=== PATIENT | male | born 1955 | race Caucasian/White ===

== ENCOUNTER 2017-08-30 15:24 | Inpatient (IN) | payer SELFPAY ==
--- NOTE | 2017-08-30 15:48 | CPEKG ---
Heart Rate: 73 RR Interval: 822 P-R Interval: 136 QRSD Interval: 86 QT Interval: 412 QTC Interval: 454 P Bath: 54 QRS Bath: 16 T Wave Bath: -24 EKG Severity - BORDERLINE ECG - EKG Impression: SINUS RHYTHM EKG Impression: BORDERLINE T ABNORMALITIES, DIFFUSE LEADS Electronically Signed By: Chung Cardona 30-Aug-2017 15:49:34
--- NOTE | 2017-08-30 15:49 | EDPHY ---
H & P Time Seen by Provider: 08/30/17 15:47 HPI/ROS: CHIEF COMPLAINT: Generalized weakness HISTORY OF PRESENT ILLNESS: Patient is a history of hypertension and diabetes with chronically elevated liver function tests. He said he felt fine on the 28 of August, but yesterday started feeling"run down"with"heavy legs"and"no energy." He said today he had some nausea and vomited once he went to urgent care and they told him to come to the ER for a potassium of 6.1. Patient tells me his fatigue is generalized and not local to any arm or leg. It is not better worse with anything. It is pretty severe and he wonders if he can get from"point to point"anymore. Not associated with headache or fever or other symptoms. REVIEW OF SYSTEMS: Eye: no change in vision ENT: no sore throat Cardiac: no chest pain or syncope Pulmonary: no cough or SOB Abdomen: No diarrhea or abdominal pain, denies red blood per rectum, has had darker stools. Musculoskeletal: no back pain Skin: no rash, was treated 3 weeks ago for right lower leg cellulitis which is improved. Neuro: no headache Constitutional: no fever : no urinary symptoms A comprehensive 10 point review of systems is otherwise negative aside from elements mentioned in the history of present illness. PAST MEDICAL HISTORY: Includes diabetes and hypertension, kidney stone and chronically elevated liver function tests, psoriasis Social history: Denies alcohol, here with his of 13 years, PCP is Dr. Antonio. General Appearance: Alert and conversant, cooperative. Eyes: No scleral icterus. ENT, Mouth: Normal mucous membranes. Respiratory: Normal respiratory effort, breath sounds equal, lungs are clear to auscultation. Cardiovascular: Regular rate and rhythm. Gastrointestinal: Abdomen is soft and non tender. Neurological: Alert, face symmetric, normal motor and sensory in extremities. Skin: Patient has diffuse rash of psoriasis including both hands in the middle of his back. Musculoskeletal: Has bilateral peripheral edema but no calf tenderness. Psychiatric: Not agitated. Emergency Department course/MDM: Plan to check CBC chemistry and liver function tests. Results discussed with the patient. He has melena and 40 mg IV Protonix ordered. He has hyperkalemia and 10 units IV insulin and 1 amp of D50 ordered, 1 amp of sodium bicarbonate. He does not have QRS abnormalities on EKG. Consultation with gastroenterology and hospitalist for admission. Continued monitoring in the ER. Smoking Status: Current every day smoker Constitutional: Initial Vital Signs Temperature (C) 36.4 C 08/30/17 15:32 Heart Rate 82 08/30/17 15:32 Respiratory Rate 16 08/30/17 15:32 Blood Pressure 91/63 L 08/30/17 15:32 O2 Sat (%) 100 08/30/17 15:32 O2 Delivery Mode Room Air Allergies/Adverse Reactions: cholera vaccine Allergy (Verified 08/30/17 15:32) codeine Allergy (Verified 08/30/17 15:32) Home Medications: Medication Instructions Recorded Aspirin 08/30/17 Metformin HCl 08/30/17 Metoprolol Tartrate 08/30/17 Medical Decision Making - Diagnostics EKG Interpretation: 12-lead EKG interpreted by me; official reading is in trace master. My interpretation is sinus rhythm with nonspecific T-wave flattening diffuse. Differential Diagnosis: Differential diagnosis considered for weakness including but not limited to electrolyte abnormality, depression, anxiety, CVA, spinal cord abnormality, and infectious causes. Consult/Admit Bed Type: [place] [id number], [place] [id number] Critical Care Time: Critical care time spent by me, Dr. Cardona, exclusively with the care of this patient was 40 minutes, exclusive of PA or RATING EXAMINER time and exclusive of separate procedures. The organ system at risk was gastroenterology and metabolic with hyperkalemia and upper GI bleed, and I ordered proton pump inhibitor, insulin and glucose, IV bicarbonate to stabilize the patient and prevent worsening of the patient's condition. - Data Points Laboratory Results: Laboratory Results 08/30/17 15:54 08/30/17 15:54 08/30/17 08/30/17 08/30/17 16:44 16:01 15:54 WBC RBC Hgb POC Hgb 9.5 gm/dL L gm/dL (13.7-17.5) Hct POC Hct 28 % L % (40-51) MCV MCH MCHC RDW Plt Count MPV Neut % (Auto) Lymph % (Auto) Sandoval % (Auto) Eos % (Auto) Baso % (Auto) Nucleat RBC Rel Count Absolute Neuts (auto) Absolute Lymphs (auto) Absolute Monos (auto) Absolute Eos (auto) Absolute Basos (auto) Absolute Nucleated RBC Immature Gran % Immature Gran # Platelet Estimate Polychromasia Hypochromasia Microcytic Cells Oval Macrocytes Smear Review By POC Sodium 138 mEq/L mEq/L (135-145) Sodium POC Potassium 5.5 mEq/L H mEq/L (3.3-5.0) Potassium POC Chloride 106 mEq/L mEq/L (97-110) Chloride Carbon Dioxide Anion Gap POC BUN 46 mg/dL H mg/dL (7-23) BUN Creatinine POC Creatinine 0.8 mg/dL mg/dL (0.7-1.3) Estimated GFR Glucose POC Glucose 163 mg/dL H mg/dL (70-100) Calcium Total Bilirubin Conjugated Bilirubin Unconjugated Bilirubin AST ALT Alkaline Phosphatase Total Protein Albumin Stool Occult Bld Scrn POSITIVE H (NEGATIVE) Ethyl Alcohol < 10 mg/dL mg/dL (0-10) 08/30/17 08/30/17 15:54 15:54 WBC 6.25 10^3/uL 10^3/uL (3.80-9.50) RBC 2.26 10^6/uL L 10^6/uL (4.40-6.38) Hgb 8.2 g/dL L g/dL (13.7-17.5) POC Hgb Hct 26.7 % L % (40.0-51.0) POC Hct MCV 118.1 fL H fL (81.5-99.8) MCH 36.3 pg H pg (27.9-34.1) MCHC 30.7 g/dL L g/dL (32.4-36.7) RDW 17.6 % H % (11.5-15.2) Plt Count 89 10^3/uL L 10^3/uL (150-400) MPV 12.4 fL H fL (8.7-11.7) Neut % (Auto) 72.3 % % (39.3-74.2) Lymph % (Auto) 21.6 % % (15.0-45.0) [place]oval % (Auto) 5.3 % % (4.5-13.0) Eos % (Auto) 0.0 % L % (0.6-7.6) Baso % (Auto) 0.3 % % (0.3-1.7) Nucleat RBC Rel Count 0.0 % % (0.0-0.2) Absolute Neuts (auto) 4.52 10^3/uL 10^3/uL (1.70-6.50) Absolute Lymphs (auto) 1.35 10^3/uL 10^3/uL (1.00-3.00) Absolute Monos (auto) 0.33 10^3/uL 10^3/uL (0.30-0.80) Absolute Eos (auto) 0.00 10^3/uL L 10^3/uL (0.03-0.40) Absolute Basos (auto) 0.02 10^3/uL 10^3/uL (0.02-0.10) Absolute Nucleated RBC 0.00 10^3/uL 10^3/uL (0-0.01) Immature Gran % 0.5 % % (0.0-1.1) Immature Gran # 0.03 10^3/uL 10^3/uL (0.00-0.10) Platelet Estimate DECREASED L (ADEQ) Polychromasia 1+ H Hypochromasia 1+ H Microcytic Cells 1+ H Oval Macrocytes 3+ H Smear Review By Pending POC Sodium Sodium 137 mEq/L mEq/L (135-145) POC Potassium Potassium 5.7 mEq/L H mEq/L (3.3-5.0) POC Chloride Chloride 107 mEq/L mEq/L (97-110) Carbon Dioxide 18 mEq/l L mEq/l (22-31) Anion Gap 12 mEq/L mEq/L (8-16) POC BUN BUN 49 mg/dL H mg/dL (7-23) Creatinine 0.8 mg/dL mg/dL (0.7-1.3) POC Creatinine Estimated GFR > 60 Glucose 161 mg/dL H mg/dL (70-100) POC Glucose Calcium 8.5 mg/dL mg/dL (8.5-10.4) Total Bilirubin 2.3 mg/dL H mg/dL (0.1-1.4) Conjugated Bilirubin 1.0 mg/dL H mg/dL (0.0-0.5) Unconjugated Bilirubin 1.3 mg/dL H mg/dL (0.0-1.1) AST 105 IU/L H IU/L (17-59) ALT 66 IU/L IU/L (21-72) Alkaline Phosphatase 80 IU/L IU/L (38-126) Total Protein 7.1 g/dL g/dL (6.3-8.2) Albumin 2.6 g/dL L g/dL (3.5-5.0) Stool Occult Bld Scrn Ethyl Alcohol Medications Given: Discontinued Medications Dextrose (Dextrose 50% Syringe) 25 gm IVP EDNOW ONE Stop: 08/30/17 16:29 Last Admin: 08/30/17 16:46 Dose: 25 gm Insulin Human Regular (Humulin R) 10 unit IVP EDNOW ONE Stop: 08/30/17 16:29 Last Admin: 08/30/17 16:45 Dose: 10 units Pantoprazole Sodium (Protonix) 40 mg IVP EDNOW ONE Stop: 08/30/17 17:01 Last Admin: 08/30/17 17:05 Dose: 40 mg Sodium Bicarbonate (Sodium Bicarbonate) 50 meq IVP EDNOW ONE Stop: 08/30/17 16:29 Last Admin: 08/30/17 16:45 Dose: 50 meq Point of Care Test Results: Chemistry 08/30/17 16:01 POC Sodium 138 mEq/L mEq/L (135-145) POC Potassium 5.5 mEq/L H mEq/L (3.3-5.0) POC Chloride 106 mEq/L mEq/L (97-110) POC BUN 46 mg/dL H mg/dL (7-23) POC Creatinine 0.8 mg/dL mg/dL (0.7-1.3) POC Glucose 163 mg/dL H mg/dL (70-100) ISTAT H&H 08/30/17 16:01 POC Hgb 9.5 gm/dL L gm/dL (13.7-17.5) POC Hct 28 % L % (40-51) Departure - Departure Disposition: [facility] Inpatient Acute Clinical Impression: Hyperkalemia, Upper GI bleeding Anemia Qualifiers: Anemia type: unspecified type Qualified Code(s): D64.9 - Anemia, unspecified Condition: Serious
[2017-08-30 16:20] LABS: PLATELET COUNT 89 10^3/uL (150-400)
[2017-08-30] MEDS ORDERED: SODIUM BICARBONATE 50 MEQ/50 ML SYR IVP ONE (16:28)
[2017-08-30] MEDS ORDERED: D50W 25 GM/50 ML SYR IVP ONE (16:28)
[2017-08-30] MEDS ORDERED: INSULIN REGULAR HUMAN 100 UNIT/ML UNIT IVP ONE (16:28)
[2017-08-30] MEDS ORDERED: PANTOPRAZOLE SODIUM 40 MG VIAL IVP ONE (17:00)
[2017-08-30] MEDS ORDERED: ONDANSETRON DISINTEGRATING 4 MG TAB PO PRN (17:08)
[2017-08-30] MEDS ORDERED: ONDANSETRON 4 MG/2 ML VIAL IVP PRN (17:08)
[2017-08-30] MEDS ORDERED: ACETAMINOPHEN 325 MG TAB PO PRN (17:08)
[2017-08-30] MEDS ORDERED: D50W 25 GM/50 ML VIAL IVP PRN (18:03)
--- NOTE | 2017-08-30 18:06 | GCON ---
[f rep st] CONSULTATION GI CONSULTATION DATE OF CONSULTATION: 08/30/2017 REQUESTING PHYSICIAN: Chung Cardona. REASON FOR CONSULTATION: Melena, anemia, and abnormal liver enzymes. HISTORY OF PRESENT ILLNESS: The patient is a 62-year-old gentleman who is followed by Dr. Antonio for diabetes mellitus and for chronic elevation of liver enzymes without etiology found. The patient presented to the emergency room today with a 48-hour history of malaise and anorexia. He has denied any blood in his stool or black tarry stools, any nausea, vomiting, abdominal pain, or hematemesis. He states that he has had cellulitis of his lower extremities for several weeks with edema, for which he said he was given a course of antibiotics. He denies any alcohol consumption. He does admit to cocaine use intranasal and IV in his 20s, but none since. He states he has had blood tests for hepatitis B and C in the past, which were negative. He has had no prior colonoscopy or upper endoscopies. The patient was noted to have melenic Hemoccult-positive stool by the emergency room doctor on admission to the emergency room with anemia with a hemoglobin of 8.2 as well as abnormal liver enzymes with a total bilirubin of 2.3, AST of 105, and ALT of 66. MEDICATIONS: Prior to admission included metformin, metoprolol, and daily aspirin. ALLERGIES: He states he is allergic to codeine and cholera vaccine. PAST MEDICAL HISTORY: Significant for hypertension, diabetes, chronic elevated liver enzymes, psoriasis, and a history of kidney stone. PAST SURGICAL HISTORY: Unremarkable. SOCIAL HISTORY: He adamantly denies alcohol consumption. His confirms this. He does not smoke tobacco. He lives with his in [place]. He is self -employed. REVIEW OF SYSTEMS: Other than complaints of fatigue and anorexia over the last 48 hours is negative for a comprehensive review of systems. PHYSICAL EXAMINATION: VITAL SIGNS: On my examination today, temperature 36.4 Celsius, pulse 78 and regular, blood pressure 107/66, respiratory rate 16, O2 saturation 98% on room air. GENERAL: Well-developed, well-nourished male, lying in the stretcher, in no apparent distress. INTEGUMENT: Ashen complexion. HEENT: Head: Atraumatic, normocephalic. Pupils equal, round, reactive to light. EOMs were intact. Sclerae nonicteric. Nares patent. Mucous membranes moist. Dentition good. NECK: Supple. Trachea midline. LYMPHATICS: No cervical or axillary adenopathy palpated. PULMONARY: Lungs are clear to percussion and auscultation. CARDIOVASCULAR: Regular rhythm and rate. Normal S1, S2 without murmur. Peripheral pulses were not palpated bilaterally. He did have pedal edema from the knees down to the ankles, which were brawny. GASTROINTESTINAL: Abdomen supple, distended without fluid wave, + bowel sounds, nontender. No HSM. EXTREMITIES: Without deformities. NEURO: Patient was alert and oriented x3. There were no focal neurologic deficits. RECTAL: Exam per ER doctor showed a black Hemoccult positive stool. LABS: Sodium 137, potassium 5.7, chloride 107, CO2 was 18, anion gap 12, BUN 49 , creatinine 0.8, glucose 161, calcium 8.5, total bilirubin 2.3, conjugated 1.0 , unconjugated 1.3, AST is 105, ALT is 66, ALP 80, albumin 2.6. White count 6.25, hemoglobin 8.2, hematocrit 26.7, MCV elevated at 118, platelets 89,000, RDW elevated at 17.6. IMPRESSION: 1. Gastrointestinal bleed with posthemorrhagic anemia, rule out peptic ulcer disease, rule out gastritis, less likely esophageal variceal bleed without significant bloody show. 2. Elevated liver enzymes with AST, ALT pattern consistent with alcoholic hepatitis, though the patient adamantly denies alcohol use. Other possibilities would be viral hepatitis, hemochromatosis, or Raphael's disease, less likely. 3. Hyperkalemia-mild. 4. Elevated blood urea nitrogen secondary to blood loss. 5. Thrombocytopenia, could be related to occult cirrhosis or bone marrow suppression from chronic alcohol use. RECOMMENDATIONS: 1. Hospitalist admit for further evaluation. 2. IV hydration. 3. Correct potassium. 4. Diuresis of fluid overload (peripheral edema legs). 5. Serial H and H. 6. Protonix 40 mg IV q.12 hours. 7. Esophagogastroduodenoscopy in the morning to rule out peptic ulcer or variceal bleed. 8. Viral hepatitis serology. 9. We will follow with you. /[id number]/MODL and [id number]/MODL MTDD
--- NOTE | 2017-08-30 18:09 | PDGENHP ---
History and Physical - Chief Complaint weakness - History of Present Illness Patient is a history of hypertension and diabetes with chronically elevated liver function tests. He said he felt fine on the 28 of August, but yesterday started feeling"run down"with"heavy legs"and"no energy." He said today he had some nausea and vomited once he went to urgent care and they told him to come to the ER for a potassium of 6.1. He reports leg swelling x several weeks. he reports no abd pain. no resp sx. Hx of HTN. no hx of CHF. no cp, no palpitations. Some nausea. Intermittent diarrhea. no focal deficits. PAST MEDICAL HISTORY: Includes diabetes and hypertension, kidney stone and chronically elevated liver function tests, psoriasis Social history: Denies alcohol, daily tobacco user History Information - Allergies/Home Medication List Allergies/Adverse Reactions: cholera vaccine Allergy (Verified 08/30/17 15:32) codeine Allergy (Verified 08/30/17 15:32) Home Medications: Aspirin 08/30/17 [Last Taken Unknown] Metformin HCl 08/30/17 [Last Taken Unknown] Metoprolol Tartrate 08/30/17 [Last Taken Unknown] I have personally reviewed and updated: medical history, social history - Social History Smoking Status: Current every day smoker Review of Systems Review of Systems: ROS: 10pt was reviewed & negative except for what was stated in HPI & below Physical Exam Physical Exam: Temp Pulse Resp BP Pulse Ox 36.4 C 78 16 107/66 98 08/30/17 15:32 08/30/17 16:02 08/30/17 16:02 08/30/17 16:02 08/30/17 16:02 Constitutional: no apparent distress Eyes: PERRL, EOMI Ears, Nose, Mouth, Throat: dry mucous membranes Cardiovascular: regular rate and rhythym, edema (2+) Respiratory: no respiratory distress, no rales or rhonchi Gastrointestinal: normoactive bowel sounds, soft, non-tender abdomen Skin: warm Neurologic: AAOx3 Psychiatric: interacting appropriately, not anxious, not encephalopathic Lymph, Heme, Immunologic: No petechiae Lab Data & Imaging Review 08/30/17 15:54 08/30/17 15:54 WBC 6.25 10^3/uL (3.80-9.50) 08/30/17 15:54 RBC 2.26 10^6/uL (4.40-6.38) L 08/30/17 15:54 Hgb 8.2 g/dL (13.7-17.5) L 08/30/17 15:54 POC Hgb 9.5 gm/dL (13.7-17.5) L 08/30/17 16:01 Hct 26.7 % (40.0-51.0) L 08/30/17 15:54 POC Hct 28 % (40-51) L 08/30/17 16:01 MCV 118.1 fL (81.5-99.8) H 08/30/17 15:54 MCH 36.3 pg (27.9-34.1) H 08/30/17 15:54 MCHC 30.7 g/dL (32.4-36.7) L 08/30/17 15:54 RDW 17.6 % (11.5-15.2) H 08/30/17 15:54 Plt Count 89 10^3/uL (150-400) L 08/30/17 15:54 MPV 12.4 fL (8.7-11.7) H 08/30/17 15:54 Neut % (Auto) 72.3 % (39.3-74.2) 08/30/17 15:54 Lymph % (Auto) 21.6 % (15.0-45.0) 08/30/17 15:54 [place] % (Auto) 5.3 % (4.5-13.0) 08/30/17 15:54 Eos % (Auto) 0.0 % (0.6-7.6) L 08/30/17 15:54 Baso % (Auto) 0.3 % (0.3-1.7) 08/30/17 15:54 Nucleat RBC Rel Count 0.0 % (0.0-0.2) 08/30/17 15:54 Absolute Neuts (auto) 4.52 10^3/uL (1.70-6.50) 08/30/17 15:54 Absolute Lymphs (auto) 1.35 10^3/uL (1.00-3.00) 08/30/17 15:54 Absolute Monos (auto) 0.33 10^3/uL (0.30-0.80) 08/30/17 15:54 Absolute Eos (auto) 0.00 10^3/uL (0.03-0.40) L 08/30/17 15:54 Absolute Basos (auto) 0.02 10^3/uL (0.02-0.10) 08/30/17 15:54 Absolute Nucleated RBC 0.00 10^3/uL (0-0.01) 08/30/17 15:54 Immature Gran % 0.5 % (0.0-1.1) 08/30/17 15:54 Immature Gran # 0.03 10^3/uL (0.00-0.10) 08/30/17 15:54 Platelet Estimate DECREASED (ADEQ) L 08/30/17 15:54 Polychromasia 1+ H 08/30/17 15:54 Hypochromasia 1+ H 08/30/17 15:54 Microcytic Cells 1+ H 08/30/17 15:54 Oval Macrocytes 3+ H 08/30/17 15:54 POC Sodium 138 mEq/L (135-145) 08/30/17 16:01 Sodium 137 mEq/L (135-145) 08/30/17 15:54 POC Potassium 5.5 mEq/L (3.3-5.0) H 08/30/17 16:01 Potassium 5.7 mEq/L (3.3-5.0) H 08/30/17 15:54 POC Chloride 106 mEq/L (97-110) 08/30/17 16:01 Chloride 107 mEq/L (97-110) 08/30/17 15:54 Carbon Dioxide 18 mEq/l (22-31) L 08/30/17 15:54 Anion Gap 12 mEq/L (8-16) 08/30/17 15:54 POC BUN 46 mg/dL (7-23) H 08/30/17 16:01 BUN 49 mg/dL (7-23) H 08/30/17 15:54 Creatinine 0.8 mg/dL (0.7-1.3) 08/30/17 15:54 POC Creatinine 0.8 mg/dL (0.7-1.3) 08/30/17 16:01 Estimated GFR > 60 08/30/17 15:54 Glucose 161 mg/dL (70-100) H 08/30/17 15:54 POC Glucose 163 mg/dL (70-100) H 08/30/17 16:01 Calcium 8.5 mg/dL (8.5-10.4) 08/30/17 15:54 Total Bilirubin 2.3 mg/dL (0.1-1.4) H 08/30/17 15:54 Conjugated Bilirubin 1.0 mg/dL (0.0-0.5) H 08/30/17 15:54 Unconjugated Bilirubin 1.3 mg/dL (0.0-1.1) H 08/30/17 15:54 AST 105 IU/L (17-59) H 08/30/17 15:54 ALT 66 IU/L (21-72) 08/30/17 15:54 Alkaline Phosphatase 80 IU/L (38-126) 08/30/17 15:54 Total Protein 7.1 g/dL (6.3-8.2) 08/30/17 15:54 Albumin 2.6 g/dL (3.5-5.0) L 08/30/17 15:54 Stool Occult Bld Scrn POSITIVE (NEGATIVE) H 08/30/17 16:44 Ethyl Alcohol < 10 mg/dL (0-10) 08/30/17 15:54 Assessment & Plan Assessment: #Gen weakness #Acute likely Upper GI bleed with Melena #Hypotension, multifactorial, bleed and dehydration -hx of htn and hx of Afib, not on chronic AC #Dehydration #Acute blood loss anemia vs acute on chronic anemia #Macrocytosis #thrombocytopenia #transaminitis, mild #Hyperkalemia #Metabolic Acidosis #Pedal Edema, sub acute. No hx of CHF. Etiology unclear #tobacco abuse Plan: -GI to see -Transfuse PRN, will recheck H/H this evening -Likely NPO but will defer diet to GI who will see this evening -IVF now -monitor BP closely -PCU -Hold Metoprolol, Aspirin -ISS. Hold Metformin -SCD's -Await INR which has been ordered -TTE -US doppler LE although low suspicion for clot -Repeat BMP tonight to determine if K is increasing. Check Mg. -Hep Panel -full code -total critical care time in a patient with acute GIB and hypotension is 75 mins. D/W the ER staff.
[2017-08-30] MEDS ORDERED: NS 1,000 ML IV SCH (18:15)
[2017-08-30 19:53] LABS: INR 1.56 (0.83-1.16); PROTIME(PATIENT) 18.8 SEC (12.0-15.0)
[2017-08-30] MEDS: INSULIN LISPRO 100 UNIT/ML SC SCH (21:46)
[2017-08-30] MEDS: PANTOPRAZOLE SODIUM 40 MG VIAL IVP SCH (21:53)
[2017-08-30 21:57] LABS: HEPATITIS A ANTIBODY IGM (BCH) NEGATIVE (NEGATIVE); HEPATITIS B CORE AB IGM NEGATIVE (NEGATIVE); HEPATITIS B SURFACE ANTIGEN NEGATIVE (NEGATIVE); HEPATITIS C ANTIBODY TOTAL REACTIVE (NEGATIVE)
[2017-08-30 23:35] LABS: PLATELET COUNT 62 10^3/uL (150-400)
[2017-08-31] MEDS: INSULIN LISPRO 100 UNIT/ML SC SCH ×3 (07:57→18:11)
[2017-08-31] MEDS: PANTOPRAZOLE SODIUM 40 MG VIAL IVP SCH ×2 (09:49→20:43)
--- NOTE | 2017-08-31 10:14 | PDMN ---
Medical Necessity Medical necessity: MCG: M180 GIB, Upper, A-2 days. 62 y/o w/ UGI bleed, hypotensive, dehydration, anemia (H/H 19.3/6.3), macrocytosis, thrombocytopenia (plt 62K), hyperkalemia K 5.7), metabolic acidosis, PRBC transfusion required, continuing IV fluids. NPO. GI consult plan for esophagogastroduodenoscopy to r/ o ulcer/variceal bleeds. Patient w/ hx diabetes, Afib. Anticipate >2MN for continued monitoring and treatment.
--- NOTE | 2017-08-31 11:49 | ECHO ---
[email or web address] [address] Main: [phone] Fax: [email or web address] Echocardiogram Name: PATRICK SMITH MR#: [id number] Study Date: 08/31/2017 Study Time: 08:08 AM Date of : 1955 Age: 62 year(s) Height: 182.9 cm (72 in.) Weight: 75.75 kg (167 lb.) BSA: 1.97 m2 Gender: Male Examination: Echo Indication: ?chf Image Quality: Adequate Contrast: Requested by: Parker Singh BP: 86 mmHg/50 mmHg Heart Rate: Rhythm: Indication: ?chf Procedure Staff Thread Machine Operator: Zenobia Mosquera [facility] Reading Physician: Jorge Ellison MD Requesting Provider: Conclusions: Normal size left ventricle. Normal global systolic LV function. EF is 65 %. No regional wall motion abnormality. Mild mitral valve regurgitation is present. Mild tricuspid regurgitation is present. Right ventricular systolic pressure measures 21mmHg. Measurements: Chambers Valvular Assessment AV/MV Valvular Assessment TV/PV Normal Normal Normal Name Value Range Name Value Range Name Value Range Ao Venita (2D): 3.0 cm (1.4 cm-2.6 AV Vmax: 1.40 m/s (1 m/s-1.7 TR Vmax: 2.00 mm/s ( - ) cm) m/s) TR PGmax: 16 mmHg ( - ) IVSd (2D): 1.0 cm (0.6 cm-1.1 AV maxP mmHg ( - ) syst. PAP: 21 mmHg ( - ) cm) AV meanP mmHg ( - ) PV Vmax: 1.14 m/s (0.6 m/s-0.9 LVDd (2D): 5.0 cm (4.2 cm-5.9 RACQUEL (VTI): 2.9 cm ( - ) m/s) cm) MV E Vmax: 0.54 m/s ( - ) PV PGmax: 5 mmHg ( - ) LVDs (2D): 3.4 cm (2.1 cm-4 MV A Vmax: 0.58 m/s ( - ) cm) MV E/A: 0.93 ( - ) LVPWd (2D): 1.0 cm (0.6 cm-1 cm) MV PHT: 0.087 s ( - ) LVOTd 2.4 cm 2.4 cm mm MVA (PHT): 2.5 s ( - ) LVEF (BP): 65 % (>=55 %) RVDd(2D): 2.8 cm (1.9 cm-3.8 cmmm) Continued Measurements: Chambers Valvular Assessment AV/MV Valvular Assessment TV/PV Patient: PATRICK SMITH Study Date: 08/31/2017 Page 1 of 2 08:08 AM Name Value Name Value Name Value LADs: 4.5 cm MV DecTime: 275 m/s CVP (est.): 5 mmHg LADs Lon.4 cm MV E' Septal: 0.10 m/s LA Area: 20.7 cm2 MV E/E' Septal: 5.50 LA Volume: 63 ml MV E/E' Lateral: 4.70 LA Volume Index: 32.0 ml/m2 RA Area: 17.5 cm2 Additional Vessels Name Value Ao Ascendin.3 cm Inferior Vena Cava: 1.5 cm Findings: Left Ventricle: Normal size left ventricle. No LV hypertrophy. Normal global systolic LV function. EF is 65 %. No regional wall motion abnormality. Unable to assess diastolic dysfunction. Right Ventricle: Normal size right ventricle. Normal RV function. Left Atrium: The left atrium is normal in size. Right Atrium: The right atrium is normal in size. Mitral Valve: The mitral valve is normal in appearance and function. Mild mitral valve regurgitation is present. No mitral stenosis is present. Aortic Valve: The aortic valve is tri-leaflet. There is no significant aortic valve regurgitation. No aortic valve stenosis is present. Tricuspid Valve: The tricuspid valve is normal in appearance and function. Mild tricuspid regurgitation is present. The pulmonary artery pressure is normal. Right ventricular systolic pressure measures 21mmHg. Pulmonic Valve: The pulmonic valve is normal in appearance and function. There is no pulmonic regurgitation seen. Aorta: The aorta is normal. Normal size aortic root measuring 3.0 cm. Normal size ascending aorta measuring 2.3 cm. IVC: The IVC is normal sized. Pericardium: No pericardial effusion. No pleural effusion. (No Signature Object) Patient: PATRICK SMITH Study Date: 08/31/2017 Page 2 of 2 08:08 AM [id number]
[2017-08-31] MEDS ORDERED: fentaNYL 100 MCG/2 ML INJ IVP PRN (12:20)
[2017-08-31] MEDS ORDERED: NALOXONE HCL 0.4 MG/ML INJ IVP PRN (12:20)
[2017-08-31] MEDS ORDERED: ONDANSETRON 4 MG/2 ML VIAL IVP PRN (12:20)
[2017-08-31] MEDS ORDERED: LR 500 ML IV PRN (12:20)
[2017-08-31] MEDS ORDERED: PROMETHAZINE HCL 25 MG/ML INJ IVP PRN (12:20)
--- NOTE | 2017-08-31 12:20 | PDANEPAE ---
ANE Past Medical History - Pulmonary History Hx Oxygen in Use at Home: No Hx Sleep Apnea: No Sleep Apnea Screening Result - Last Documented: Positive - Endocrine History Hx Diabetes: Yes - Chronic Pain History Chronic Pain: No ANE Review of Systems Review of Systems: ANE Patient History - Allergies Allergies/Adverse Reactions: cholera vaccine Allergy (Verified 08/30/17 19:03) Arm swelled up after injection codeine Allergy (Verified 08/30/17 19:03) Severe Nausea/Vomiting - Home Medications Home medications: home medication list seen and reviewed Home Medications: Aspirin [Aspirin 81mg (*)] 81 mg PO BID 08/30/17 [Last Taken Unknown] Metoprolol Tartrate [Lopressor 50 mg (*)] 50 mg PO BID 08/30/17 [Last Taken Unknown] metFORMIN HCL [Glucophage 500 mg (*)] 500 mg PO BIDMEAL 08/30/17 [Last Taken Unknown] - NPO status NPO Status: no food or drink >8 hours NPO Since - Liquids (Date): 08/31/17 NPO Since - Liquids (Time): 00:00 NPO Since - Solids (Date): 08/31/17 NPO Since - Solids (Time): 00:00 - Anes Hx Anes Hx: no prior problems - Smoking Hx Smoking Status: Current every day smoker ANE Labs/Vital Signs - Labs Result Diagrams: 08/30/17 23:00 08/30/17 23:00 - Vital Signs Blood Pressure: 86/50 Heart Rate: 82 Respiratory Rate: 15 O2 Sat (%): 94 Height: 182.88 cm Weight: 74.049 kg ANE Physical Exam - Airway Neck exam: FROM Mallampati Score: Class 2 Mouth exam: normal dental/mouth exam - Pulmonary Pulmonary: no respiratory distress, no rales or rhonchi, clear to auscultation - Cardiovascular Cardiovascular: regular rate and rhythym - ASA Status ASA Status: III ANE Anesthesia Plan Anesthesia Plan: GA with mask
[2017-08-31] MEDS ORDERED: PROPOFOL 200 MG/20 ML VIAL ONE (12:29)
--- NOTE | 2017-08-31 12:55 | GIREPORT ---
[facility] - Endoscopy Department Patient Name: Miah Oneill Procedure Date: 08/31/2017 12:10 PM Patient Type: Inpatient Attending MD/ ER Physician: Calvin Storey MD Procedure: Upper GI endoscopy Indications: Melena Providers: Calvin Storey MD Medicines: Propofol per Anesthesia Complications: No immediate complications. Description of Procedure: After obtaining informed consent, the endoscope was passed under direct vision. Throughout the procedure, the patient's blood pressure, pulse, and oxygen saturations were monitored continuously. The Endoscope was intro duced through the mouth, and advanced to the second part of duodenum. The [facility] GI endoscopy was accomplished without difficulty. The patient tolerated th e procedure well. Findings: Two columns of non-bleeding grade II varices were found in the middle t hird of the esophagus and in the lower third of the esophagus,. They were 7 mm in largest diameter. Stigmata of recent bleeding were evident and white cl ot were present. Two bands were successfully placed with incomplete eradic ation of varices. There was no bleeding during, and at the end, of the proced ure. Diffuse moderate inflammation characterized by erythema and granularity was found in the entire examined stomach. The examined duodenum was normal. Estimated Blood Loss: Estimated blood loss: none. Post Op Diagnosis: - Recently bleeding grade II esophageal varices. Incompletely eradicate d. Banded. - Non-erosive gastritis. Likely gastropathy of portal HTN. - Normal examined duodenum. - No specimens collected. Recommendation: - Return patient to ICU for ongoing care. - Clear liquid diet today. - Octreotide gtt x 48 hours. - Repeat upper endoscopy in 3 days for retreatment. - The findings and recommendations were discussed with the referring physician. Attending Participation: I personally performed the entire procedure. Calvin Storey MD Calvin Storey MD 08/31/2017 12:54:40 PM This report has been signed electronicallyCalvin Storey MD Number of Addenda: 0 Note Initiated On: 08/31/2017 12:10 PM [email or web address]
--- NOTE | 2017-08-31 12:59 | POSTANESTH ---
Post Anesthetic Evaluation Cardiovascular Status: Normal, Stable, Similar to Pre-Op Cond Respiratory Status: Normal, Stable, Similar to Pre-op Cond. Level of Consciousness/Mental Status: Moderately Sleepy Pain Control: Adequate, Prn Tx Ordered Nausea/Vomiting Control: Adequate, Prn Tx Ordered Complications Possibly Related to Anesthesia: None Noted
--- NOTE | 2017-08-31 13:29 | SOAPPROG ---
SOAP Progress Note Assessment/Plan: Assessment: 1. Esophageal variceal bleed; S/P Banding x 2 today. 2. Post Hemorrhagic anemia. 3. Hepatitis C with cirrhosis, new diagnosis. Plan: 1. Clear po. 2. IV octreotide gtt x 48 hours. 3. One unit prbc today. 4. Continue IV PPI. 5. Repeat EGD with F/U banding in 3-5 days. Calvin Storey MD 08/31/17 13:25 Objective: Vital Signs Temp Pulse Resp BP Pulse Ox 36.4 C 66 22 H 133/57 H 96 08/31/17 13:16 08/31/17 13:00 08/31/17 13:16 08/31/17 13:16 08/31/17 13:16 Laboratory Results 08/30/17 23:00 08/30/17 23:00 08/30/17 08/31/17 09/01/17 05:59 05:59 05:59 Intake Total 1250 Output Total 325 Balance 1250 -325 PT 18.8 SEC (12.0-15.0) H 08/30/17 15:54 INR 1.56 (0.83-1.16) H 08/30/17 15:54 ICD10 Worksheet Patient Problems: Problems Problem Status Onset Anemia Acute Hyperkalemia Acute Upper GI bleeding Acute
[2017-08-31 14:21] LABS: PLATELET COUNT 58 10^3/uL (150-400)
[2017-08-31] MEDS: OCTREOTIDE ACETATE 500 MCG in NS 50 ML IV SCH ×2 (15:16→20:43)
--- NOTE | 2017-08-31 15:58 | ASMTCMCOM ---
CM Note CM Note Notes: 08/31/2017 Case Management Note Reviewed chart, discussed pt during rounds this morning. Pt admitted for hyperkalemia, anemia, GIB. Pt had EGD today and US of liver. Pt is and self employed. Pt was evaluated by [employer] and found to be overincome for Medicaid. Pt is self pay at this time which will limit discharge supports from case management. PT eval is recommending home. Case Management d/c poc: anticipating independent with follow up as directed. Case Management available if needs change. Date Signed: 08/31/2017 03:57 PM Electronically Signed By:Leonor Mack RN
--- NOTE | 2017-08-31 16:14 | HOSPPROG ---
Hospitalist Progress Note Assessment/Plan: * New diagnosis cirrhosis due to Hep C -check abd US * GIB due to Esophageal varices -s/p banding x 2 -IV PPI, clear liquids -IV octreotide x 48 hours -repeat EGD 3-5 days for f/u banding * ABL anemia -s/p transfusion * Opiates on tox screen, but not on med list -needs further clarification with patient Subjective: No new complaints. Objective: Vital Signs Temp Pulse Resp BP Pulse Ox 36.7 C 67 14 106/59 L 94 08/31/17 15:52 08/31/17 15:52 08/31/17 15:52 08/31/17 15:52 08/31/17 15:52 Laboratory Results 08/31/17 14:05 08/31/17 14:05 08/30/17 08/31/17 09/01/17 05:59 05:59 05:59 Intake Total 1250 30 Output Total 325 Balance 1250 -295 PT 18.8 SEC (12.0-15.0) H 08/30/17 15:54 INR 1.56 (0.83-1.16) H 08/30/17 15:54 Old chart reviewed regarding previous lab values, HEP C never checked before - Physical Exam Constitutional: no apparent distress, appears nourished, not in pain Cardiovascular: regular rate and rhythym, edema (2+) Respiratory: no respiratory distress, no rales or rhonchi, clear to auscultation Gastrointestinal: normoactive bowel sounds, soft, non-tender abdomen, no palpable masses Skin: no rashes or abrasions, no fluctuance, no induration Neurologic: AAOx3, sensation intact bilaterally Psychiatric: interacting appropriately, not anxious, not encephalopathic, thought process linear ICD10 Worksheet Patient Problems: Problems Problem Status Onset Anemia Acute Hyperkalemia Acute Upper GI bleeding Acute
[2017-09-01 06:01] LABS: PLATELET COUNT 58 10^3/uL (150-400)
[2017-09-01] MEDS: INSULIN LISPRO 100 UNIT/ML SC SCH ×3 (07:48→17:37)
[2017-09-01] MEDS: OCTREOTIDE ACETATE 500 MCG in NS 50 ML IV SCH ×2 (07:50→18:39)
--- NOTE | 2017-09-01 07:57 | SOAPPROG ---
SOAP Progress Note Assessment/Plan: Assessment/Plan: 1. Portal HTN - HCV - complicated by varices - w/u otherwise underway - check US with Doppler - check remaining serologic w/u of liver disease - DORIS, AMA, ASMA, Ferr, Fe, TIBC, AFP, A1AT, ceruloplasmin 2. Varices - s/p EGD with bandingx2 on 08/31 - would defer repeat banding for 3-4 weeks (risk of dislodging recent bands vs benefit of placing new bands) unless bleeding recurs - continue octreotide gtt for now - ok to advance diet 3. HCV - will consider HCV treatment as outpt - newer meds are well tolerated and can improve outcomes even in setting of advanced cirrhosis - check genotype and viral load (to confirm HCV status) 09/01/17 08:17 Subjective: CC: liver disease S: feels hungry no BMs no fever no nausea no chest pain wants to go home Objective: Vital Signs Temp Pulse Resp BP Pulse Ox 36.8 C 77 16 94/52 L 98 09/01/17 07:16 09/01/17 07:16 09/01/17 07:16 09/01/17 07:16 09/01/17 07:16 Laboratory Results 09/01/17 04:46 09/01/17 04:46 08/31/17 09/01/17 09/02/17 05:59 05:59 05:59 Intake Total 1250 1191.5 Output Total 625 Balance 1250 566.5 PT 18.8 SEC (12.0-15.0) H 08/30/17 15:54 INR 1.56 (0.83-1.16) H 08/30/17 15:54 Laboratory Tests 08/30/17 08/30/17 09/01/17 15:54 15:54 04:46 WBC 2.95 L Hgb 8.9 L Hct 26.4 L MCV 100.8 H INR 1.56 H Total Bilirubin Conjugated Bilirubin Unconjugated Bilirubin AST ALT Hepatitis C Antibody REACTIVE H 09/01/17 04:46 WBC Hgb Hct MCV INR Total Bilirubin 6.7 H Conjugated Bilirubin 4.2 H Unconjugated Bilirubin 2.5 H AST 90 H ALT 65 Hepatitis C Antibody Physical Exam - Physical Exam General Appearance: WD/WN, alert EENT: PERRL/EOMI Respiratory: lungs clear Cardiac/Chest: normal peripheral pulses, regular rate, rhythm, No edema Abdomen: normal bowel sounds, non-tender, soft, No organomegaly Skin: normal color, other (psoriasis?) Extremities: normal range of motion Neuro/Psych: no motor/sensory deficits ICD10 Worksheet Patient Problems: Problems Problem Status Onset Anemia Acute Hyperkalemia Acute Upper GI bleeding Acute
[2017-09-01] MEDS ORDERED: PANTOPRAZOLE SODIUM 40 MG TAB PO ONE (08:21)
--- NOTE | 2017-09-01 13:46 | HOSPPROG ---
Hospitalist Progress Note Assessment/Plan: 62 yo M w UGIB 2/2 varices HCV cirrhosis: start lasix/aldactone start nadolol for variceal bleed outpt follow up for consideration of treatment of HCV no ascites on u/s ABLA: s/p 3 units packed red cells variceal bleed: banded start nadolol proph: scd's dispo: inpt Subjective: case discussed w Dr. Vega Objective: Vital Signs Temp Pulse Resp BP Pulse Ox 36.8 C 77 16 100/56 L 92 09/01/17 11:39 09/01/17 11:39 09/01/17 11:39 09/01/17 11:39 09/01/17 11:39 Laboratory Results 09/01/17 04:46 09/01/17 04:46 08/31/17 09/01/17 09/02/17 05:59 05:59 05:59 Intake Total 1250 1191.5 Output Total 625 Balance 1250 566.5 PT 18.8 SEC (12.0-15.0) H 08/30/17 15:54 INR 1.56 (0.83-1.16) H 08/30/17 15:54 - Physical Exam Constitutional: no apparent distress, appears nourished Eyes: PERRL, anicteric sclera Ears, Nose, Mouth, Throat: moist mucous membranes, hearing normal Cardiovascular: regular rate and rhythym, no murmur, rub, or gallop Respiratory: no respiratory distress, no rales or rhonchi Gastrointestinal: normoactive bowel sounds, soft, non-tender abdomen, No ascites Genitourinary: no bladder fullness, No zavala in urethra Skin: warm, normal color Musculoskeletal: full muscle strength, no muscle tenderness Neurologic: AAOx3 ICD10 Worksheet Patient Problems: Problems Problem Status Onset Anemia Acute Hyperkalemia Acute Upper GI bleeding Acute
[2017-09-01] MEDS: SPIRONOLACTONE 25 MG TAB PO SCH (14:42)
[2017-09-01] MEDS: FUROSEMIDE 20 MG TAB PO SCH (14:42)
[2017-09-01] MEDS: CARVEDILOL 3.125 MG TAB PO SCH (17:27)
[2017-09-02] MEDS: OCTREOTIDE ACETATE 500 MCG in NS 50 ML IV SCH (04:43)
[2017-09-02] MEDS: CARVEDILOL 3.125 MG TAB PO SCH (08:38)
[2017-09-02] MEDS: INSULIN LISPRO 100 UNIT/ML SC SCH (08:38)
[2017-09-02] MEDS: SPIRONOLACTONE 25 MG TAB PO SCH (08:38)
[2017-09-02] MEDS: FUROSEMIDE 20 MG TAB PO SCH (08:38)
[2017-09-02 08:42] VITALS: BP 100/64
--- NOTE | 2017-09-02 11:03 | HOSPPROG ---
Hospitalist Progress Note Assessment/Plan: 62 yo M w UGIB 2/2 varices HCV cirrhosis: start lasix/aldactone start carvedilol for variceal bleed outpt follow up for consideration of treatment of HCV no ascites on u/s ABLA: s/p 3 units packed red cells variceal bleed: banded start nadolol proph: scd's dispo: home today > 30 minutes on dc Subjective: case d/w dr irving. timy amount of melena that became brown. anxious for dc Objective: Vital Signs Temp Pulse Resp BP Pulse Ox 36.9 C 73 16 100/64 93 09/02/17 08:00 09/02/17 08:00 09/02/17 08:00 09/02/17 08:00 09/02/17 08:00 Laboratory Results 09/02/17 09:50 09/02/17 09:50 09/01/17 09/02/17 09/03/17 05:59 05:59 05:59 Intake Total 1191.5 1610 500 Output Total 625 350 Balance 566.5 1260 500 PT 18.8 SEC (12.0-15.0) H 08/30/17 15:54 INR 1.56 (0.83-1.16) H 08/30/17 15:54 - Physical Exam Constitutional: no apparent distress, appears nourished Eyes: PERRL, icteric sclera Ears, Nose, Mouth, Throat: moist mucous membranes, hearing normal Cardiovascular: regular rate and rhythym, no murmur, rub, or gallop Respiratory: no respiratory distress, no rales or rhonchi Gastrointestinal: normoactive bowel sounds, No guarding, No rebound Genitourinary: no bladder fullness, no bladder tenderness Skin: warm, normal color Musculoskeletal: full muscle strength, no muscle tenderness Neurologic: AAOx3 ICD10 Worksheet Patient Problems: Problems Problem Status Onset Anemia Acute Hyperkalemia Acute Upper GI bleeding Acute
--- NOTE | 2017-09-02 12:02 | ASDISCHSUM ---
Discharge Information Plan Status:Home with No Needs Medically Cleared to Leave:09/02/2017 Discharge Date:09/02/2017 11:42 AM CM D/C Disposition:Home, Routine, Self-Care ADT D/C Disposition:Home, Routine, Self-Care Projected Discharge Date:09/02/2017 11:42 AM Transportation at D/C:Family Discharge Delay Reason: Follow-Up Date:09/02/2017 11:42 AM Discharge Slot: Final Diagnosis: Placement Information Patient Contact Information Contact Name:BRISA Relationship: Address:[address] Work Phone: City:[place] Phone: State/Zip Code:[place] [address] Email: Financial Information Financial Class:Self-Pay Primary Plan Desc:SELF PAY Primary Plan Number: Secondary Plan Desc: Secondary Plan Number: Assessment Information LACE LACE Length of stay for Answers: 2 days current admission Acuity / Level of Answers: Yes Care: Did the patient have an inpatient admission? Comorbidities - select Answers: Diabetes (uncontrolled or all that apply controlled) Other Notes: HTN # of Emergency department Answers: 1-2 visits in the last 6 months Score: 8 Date Signed: 09/02/2017 11:59 AM Electronically Signed By:Leonor Mack RN [facility] Progress Note CM Note CM Note Notes: 08/31/2017 Case Management Note Reviewed chart, discussed pt during rounds this morning. Pt admitted for hyperkalemia, anemia, GIB. Pt had EGD today and US of liver. Pt is and self employed. Pt was evaluated by [employer] and found to be overincome for Medicaid. Pt is self pay at this time which will limit discharge supports from case management. PT eval is recommending home. Case Management d/c poc: anticipating independent with follow up as directed. Case Management available if needs change. Date Signed: 08/31/2017 03:57 PM Electronically Signed By:Leonor Mack RN Case Management Discharge Plan Note Case Management Discharge Discharge Order Complete? Answers: Yes Patient to Obtain Answers: Independently Medications Transportation Arranged Answers: Family/Friends Discharge Comments Notes: 09/02/2017 Case Management Note Pt to discharge independent with follow up as directed. Date Signed: 09/02/2017 12:01 PM Electronically Signed By:Leonor Mack RN Intervention Information
--- NOTE | 2017-09-02 12:16 | GDS ---
[f rep st] DISCHARGE SUMMARY DISCHARGE DIAGNOSES: 1. Upper gastrointestinal bleed, secondary to esophageal varices. 2. Cirrhosis, likely secondary to hepatitis C. 3. Hyperkalemia, now resolved. HOSPITAL COURSE: Please see admission history and physical by Dr. Denzel Singh. The patient pre sented with lethargy. He had hyperkalemia, an episode of melena. He is anemic with hemoglobin trend ing down to 6.3, receiving 3 units of packed cells. He underwent endoscopy showing esophageal varice s that were banded. Abdominal ultrasound showing early cirrhosis. The patient had labs consistent w ith cirrhosis, such as an INR of 1.6 and an elevated bilirubin of 2.3. He did have scleral icterus. Patient's bilirubin actually trended up to 70. He was started on carvedilol for rebleeding prophylaxis. Hepatitis C serology returned positive. Pe nding test are HIV, which is pending at this point in time. He is discharged home on diuretics, spironolactone, Lasix at low dose, as well as carvedilol, instruc alexx to stop his metoprolol and hold his aspirin. Has outpatient followup with Dr. Destinee Hinkle with [facility]. /[id number]/MODL
[2017-09-03 04:06] LABS: HIV TYPE 1 AND 2 NEGATIVE (NEGATIVE)
== END 2017-09-02 11:42 | disposition home or self-care (01) | DRG 369 ==
LOC: F2W 16:46
PROVIDERS: ADMIT Family Medicine; ATTEND Internal Medicine
PROC: 30233N1 Transfusion of Nonautologous Red Blood Cells into Peripheral Vein, Percutaneous Approach (ICD-10-PCS; 2017-08-31)
PROC: 06L34CZ Occlusion of Esophageal Vein with Extraluminal Device, Percutaneous Endoscopic Approach (ICD-10-PCS; principal; 2017-08-31 13:30)
DX: I85.01 Esophageal varices with bleeding (principal); K74.60 Unspecified cirrhosis of liver; B19.20 Unspecified viral hepatitis C without hepatic coma; D62 Acute posthemorrhagic anemia; K76.6 Portal hypertension; E87.2 Acidosis; E87.5 Hyperkalemia; D69.6 Thrombocytopenia, unspecified; R79.89 Other specified abnormal findings of blood chemistry; R74.0 Nonspecific elevation of levels of transaminase and lactic acid dehydrogenase [LDH]; I95.9 Hypotension, unspecified; E86.0 Dehydration; R60.0 Localized edema; K29.70 Gastritis, unspecified, without bleeding; F17.210 Nicotine dependence, cigarettes, uncomplicated; I10 Essential (primary) hypertension; E11.9 Type 2 diabetes mellitus without complications; L40.9 Psoriasis, unspecified; I48.91 Unspecified atrial fibrillation; Z79.82 Long term (current) use of aspirin; Z87.442 Personal history of urinary calculi
CPT/HCPCS: 80307; 82390-90; 82435-PO; 82565-PO; 82947-PO; 84132-PO; 84134-90; 84295-PO; 84520-PO; 85014-PO; 86255-90; 96374; 97161-GP; G0472; G0480; J1815; J2354; J2704; P9016